=== PATIENT | female | born 1990 ===

== ENCOUNTER 2022-12-24 10:35 | Outpatient (CLI) | payer BC, SELFPAY ==
--- NOTE | ~2022-12-24 | XR_ITS ---
Lumbosacral Spine: AP and lateral views Clinical History: Pain Findings: The normal lordotic curve is maintained. The vertebral bodies and posterior elements are i ntact. The intervertebral disc spaces are preserved. The sacroiliac joints are normally outlined. Impression: No significant abnormality. Reviewed, dictated and finalized at [facility]. Impression: No significant abnormality.
== END 2022-12-24 10:36 ==
PROVIDERS: PCP Family Medicine; Visit Provider Family Medicine
DX: M54.50 Low back pain, unspecified (principal)
CPT/HCPCS: 72100

== ENCOUNTER 2022-12-24 10:57 | Outpatient (CLI) | payer BC, SELFPAY ==
[2022-12-24 19:46] LABS: Basophils Absolute Auto 0.1 K/mm3 (0.0-0.1); Eosinophils Absolute Auto 0.2 K/mm3 (0-0.3); Eosinophils Percent Auto 2.9 % (0-4.4); Hemoglobin 11.9 g/dL (12.0-15.0); Immature Granulocyte Absolute 0.02 K/mm3 (0.00-0.031); Immature Granulocyte Percent A 0.3 % (0-0.5); Immature Platelet Fraction Pct 3.5 % (0.9-11.2); Lymphocytes Absolute Auto 1.79 K/mm3 (0.9-3.2); Lymphocytes Percent Auto 28.8 % (18.3-44.2); Mean Corpuscular HGB Conc 31.3 g/dl (32-36); Mean Corpuscular Hemoglobin 21.3 pg (26-34); Mean Corpuscular Volume 68.1 fl (80-100); Mean Platelet Volume 12.3 fl (7.4-10.4); Monocytes Absolute Auto 0.4 K/mm3 (0.1-0.6); Monocytes Percent Auto 6.6 % (2.6-8.5); Neutrophils Absolute Auto 3.8 K/mm3 (1.3-6.7); Neutrophils Percent Auto 60.4 % (45.5-73.1); Platelet Count Result 254 k/mm3 (150-375); Red Blood Count 5.58 M/mm3 (4.2-5.4); Red Cell Distribution Width 14.6 % (11.5-14.5); White Blood Count 6.2 K/mm3 (4.5-10.0)
[2022-12-24 21:17] LABS: Alanine Aminotransferase 36 U/L (6-35); Albumin Level 4.5 g/dL (3.5-5.1); Alkaline Phosphatase 65 U/L (38-126); Anion Gap 8 mmol/L (8-16); Aspartate Amino Transferase 48 U/L (14-36); Bilirubin,Total 0.5 mg/dL (0.2-1.3); Blood Urea Nitrogen 13 mg/dL (7-17); Calcium 8.7 mg/dL (8.4-10.2); Carbon Dioxide 26 mmol/L (22-30); Chloride 105 mmol/L (98-107); Cholesterol 203 mg/dL (0-200); Estimated Glomerular Filt Rate > 60; Glucose 89 mg/dL (65-110); HDL Direct 43 mg/dL; Potassium 4.1 mmol/L (3.4-5.0); Sodium 139 mmol/L (137-145); Triglycerides 72 mg/dL (<150)
[2022-12-24 21:25] LABS: Vitamin D 25 Hydroxy 40.6 ng/mL
[2022-12-24 21:28] LABS: LDL Cholesterol Direct 132 mg/dL
[2022-12-24 21:47] LABS: Platelet Estimate Adequate (Adequate); Schistocytes None Seen (NORMAL)
[2022-12-24 21:48] LABS: Anisocytosis 1+ (NORMAL); Hypochromasia 1+ (NORMAL)
== END 2022-12-24 10:58 | disposition home or self-care (01) ==
LOC: ANHGOSHLAB 11:01
PROVIDERS: PCP Family Medicine; Visit Provider Family Medicine
DX: Z00.00 Encounter for general adult medical examination without abnormal findings (principal); E55.9 Vitamin D deficiency, unspecified; K59.09 Other constipation; Z79.899 Other long term (current) drug therapy; E78.5 Hyperlipidemia, unspecified; E53.8 Deficiency of other specified B group vitamins
CPT/HCPCS: 36415; 80053; 80061; 82306; 82607; 84443; 85025; 85055

== ENCOUNTER 2023-01-02 08:14 | Outpatient (RCR) | payer BC, SELFPAY ==
--- NOTE | 2023-01-02 09:08 | PTOPEVAL1 ---
Assessment and note entered by Marilyn Reyse, PT, DPT Evaluation Information Assessment Status Evaluation Diagnosis low back pain Onset 3 years Subjective Information Pt arrived 15 min late for her initial evaluation this date. Pt states she has back pain and has for the last 3 years in the middle of her back, she reports no BRITTANY. She states she has been using pain killers to treat this. 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 Reported Pain Level Pain Score 6: Self Report Assessment PT Clinical Summary Loyda presents to therapy today for her initial evaluation with a diagnosis of low back pain. Today she demonstrates decreased lumbar and thoracic active ROM that is limited by pain, pelvic asymmetries, and decreased core strength allowing faulty movement patterns. Skilled physical therapy services are indicated to address the deficits noted above, to improve body awareness and movement mechanics, to decrease pain , and to return to PLOF. Plan of Care Interventions Electrical Stimulation,Gait Training,Hot Pack/Cold Pack,Manual Therapy,Neuro Re-education,Patient/ Caregiver Educati,Therapeutic Activities, Therapeutic Exercise PT Services Indicated Yes Treatment Frequency and 1x/wk for 4 wks Duration These treatments will address the objective and functional deficits as defined above. The patient will be advanced safely and appropriately in order for the patient to progress towards his/her prior level of function. Additional exercises will be introduced and as well as a comprehensive home exercise program upon discharge, if needed, ?to ensure carryover of functional gains achieved in the clinic. This treatment plan has been reviewed and agreement upon by the patient.
--- NOTE | 2023-01-09 08:41 | PCPTNOTE ---
Patient no call no showed her appointment this date but called 40 minutes after her appointment time. Patient is scheduled for another appointment 01/16.
--- NOTE | 2023-01-16 08:43 | PCPTNOTE ---
Patient no call and no showed to appointment this date.
--- NOTE | 2023-01-23 09:01 | PTOPDC ---
Assessment and note entered by Marilyn Reyes, PT, DPT Evaluation Information Assessment Status Discharge - Pt Not Present Diagnosis low back pain Onset 3 years Subjective Information Pt did not show up for her appointment today, this is her third consecutive no show. Per the attendance policy she will be discharged at this time, if she needs to continue therapy at a later time she will need a new order. Assessment PT Clinical Summary Loyda was evaluated on 01/02/23 and has not shown up for any scheduled treatments since.
== END 2023-01-23 10:21 | disposition home or self-care (01) ==
LOC: ANHGOSHPT 08:14
PROVIDERS: PCP Family Medicine; Visit Provider Family Medicine
DX: M54.50 Low back pain, unspecified (principal); G89.29 Other chronic pain
CPT/HCPCS: 97112; 97140; 97161; 99199

== ENCOUNTER 2023-02-16 09:07 | Outpatient (CLI) | payer BC, SELFPAY ==
[2023-02-16 09:53] LABS: Alanine Aminotransferase 18 U/L (6-35); Albumin Level 4.1 g/dL (3.5-5.1); Alkaline Phosphatase 52 U/L (38-126); Aspartate Amino Transferase 33 U/L (14-36); Bilirubin,Total 0.6 mg/dL (0.2-1.3)
[2023-02-18 20:40] LABS: H pylori, Urea Breath DETECTED (NOT DETECTED)
== END 2023-02-16 09:08 | disposition home or self-care (01) ==
PROVIDERS: PCP Family Medicine; Visit Provider Nurse Practitioner Family
DX: R79.89 Other specified abnormal findings of blood chemistry (principal); Z86.19 Personal history of other infectious and parasitic diseases
CPT/HCPCS: 36415; 80076; 83013